=== PATIENT | male | born 1955 | race African-American/Black ===

== ENCOUNTER 2017-10-08 21:09 | Emergency (ER) | payer OTHER ==
[2017-10-08 21:11] VITALS: TEMP 36.7; Ht 188 cm
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
[2017-10-08] MEDS ORDERED: SERT50TA PO (22:22)
[2017-10-08] MEDS ORDERED: PHEN300C PO (22:22)
[2017-10-08] MEDS ORDERED: RISP1TAB68 PO (22:22)
[2017-10-08] MEDS ORDERED: LEVE500T13 PO (22:22)
[2017-10-08] MEDS ORDERED: SENN1TAB65 PO (22:22)
[2017-10-08] MEDS ORDERED: RISP0.5T10 PO (22:22)
[2017-10-08] MEDS ORDERED: DOCU100C31 PO (22:22)
[2017-10-08 22:45] VITALS: BP 122/78; PULSE 68; O2SAT 99
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
== END 2017-10-08 22:47 | disposition home or self-care (01) ==
LOC: C.EDB 21:12 → C.EDD 22:47
DX: S00.81XA Abrasion of other part of head, initial encounter (principal); S00.83XA Contusion of other part of head, initial encounter; W05.0XXA Fall from non-moving wheelchair, initial encounter; Y92.149 Unspecified place in prison as the place of occurrence of the external cause; Z79.899 Other long term (current) drug therapy; F17.210 Nicotine dependence, cigarettes, uncomplicated